=== PATIENT | female | born 1995 | race Caucasian/White ===

== ENCOUNTER → 2016-06-23 | Outpatient (CLI) | payer OTHER ==
[2016-06-23 12:29] LABS: BASO % 0.3 % (0.0-1.0); EOS # 0.2 K/mm3 (0.0-0.50); EOS % 1.7 % (0.0-3.0); LARGE UNSTAINED CELL # 0.2 K/mm3 (0.0-0.4); LARGE UNSTAINED CELL % 2.2 % (0.0-4.0); MONO # 0.5 K/mm3 (0.0-0.8); MONO % 4.8 % (0.0-5.0); NEUTROPHILS # 7.4 K/mm3 (1.8-7.7); NEUTROPHILS % 72.1 % (36.0-66.0); WHITE BLOOD COUNT 10.2 K/mm3 (4.0-10.0)
[2016-06-23 12:36] LABS: MEAN CORPUSCULAR HEMOGLOBIN 31.1 pg (27.0-33.0); MEAN CORPUSCULAR VOLUME 86.5 fl (80.0-96.0); PLATELET COUNT, AUTOMATED 209 k/mm3 (150-450); RED CELL DISTRIBUTION WIDTH 14.1 % (11.5-14.5)
[2016-06-24 11:27] LABS: HBsAg Prenatal NEGATIVE (NEGATIVE)
== END ==
LOC: M LAB 10:38
PROVIDERS: ATTEND Advanced Practice Midwife
DX: Z34.81 Encounter for supervision of other normal pregnancy, first trimester (principal)

== ENCOUNTER → 2016-07-12 | Outpatient (CLI) | payer OTHER ==
--- NOTE | 2016-07-12 13:18 | REP ---
Clinical: Anatomical evaluation. Comparison: None . Findings: Examination demonstrates a single live intrauterine in transverse (head to maternal right side) presentation. motion is identified by technologist. Placenta is noted posteriorly and grade zero without evidence for placenta previa or abruption. Amniotic fluid volume is normal. Cervix measures 5.6 cm in length and appears closed. No evidence for nuchal cord. Gestational age by LMP 24 weeks 4 days with ONESIMO 10/28/2016 . Gestational age by current measurements 25 weeks 1 day with ONESIMO 10/24/2016 . FHR equals 140 beats per minute. BPD 6.2 cm 25 weeks 1 day HC 23.4 cm 25 weeks 3 days AC 20.7 cm 25 weeks 2 days FL 4.5 cm 24 weeks 5 days HL 4.2 cm 25 weeks 3 days HC/AC ratio 1.13 Estimated weight 767 grams ( 57th percentile). Anatomical assessment demonstrates normal structures including cranium, choroid plexus, cavum, cerebellum/posterior fossa, nose and lips, lungs, diaphragm, stomach, cord insertion/three-vessel cord, kidneys/bladder, spine, and extremities. Limited evaluation of the facial profile and heart/ventricular outflow tracts noted. Impression: Single live intrauterine in transverse lie demonstrating appropriate interval growth. Anatomical limitations as described above. The remainder of the examination is normal and complete. Signed by Orlin Eric MD 07/12/2016 01:08 P
== END ==
LOC: M RAD 12:09
PROVIDERS: ATTEND Obstetrics & Gynecology
DX: Z36 Encounter for antenatal screening of mother (principal); Z3A.25 25 weeks gestation of pregnancy

== ENCOUNTER → 2016-07-23 | Outpatient (CLI) | payer OTHER ==
[2016-07-23 13:45] LABS: BASO # 0.1 K/mm3 (0.0-0.2); BASO % 0.6 % (0.0-1.0); EOS # 0.2 K/mm3 (0.0-0.50); EOS % 1.6 % (0.0-3.0); LARGE UNSTAINED CELL # 0.1 K/mm3 (0.0-0.4); LARGE UNSTAINED CELL % 1.2 % (0.0-4.0); LYMPH # 2.2 K/mm3 (1.5-6.5); LYMPH % 19.6 % (24.0-44.0); MEAN CORPUSCULAR HEMOGLOBIN 30.5 pg (27.0-33.0); MEAN CORPUSCULAR HGB CONC 34.4 g/dl (32.0-36.5); MEAN CORPUSCULAR VOLUME 88.7 fl (80.0-96.0); MONO # 0.4 K/mm3 (0.0-0.8); MONO % 3.6 % (0.0-5.0); NEUTROPHILS # 8.3 K/mm3 (1.8-7.7); NEUTROPHILS % 73.3 % (36.0-66.0); PLATELET COUNT, AUTOMATED 244 k/mm3 (150-450); RED CELL DISTRIBUTION WIDTH 14.3 % (11.5-14.5); WHITE BLOOD COUNT 11.3 K/mm3 (4.0-10.0)
== END ==
LOC: M SMT 08:38
PROVIDERS: ATTEND Obstetrics & Gynecology
DX: Z34.83 Encounter for supervision of other normal pregnancy, third trimester (principal)

== ENCOUNTER → 2016-08-15 | Outpatient (CLI) | payer OTHER ==
--- NOTE | 2016-08-16 08:24 | REP ---
Clinical: Anatomical evaluation. Comparison: 07/12/2016 . Findings: Examination demonstrates a single live intrauterine in cephalic presentation. motion is identified by technologist. Placenta is noted posteriorly and grade zero without evidence for placenta previa or abruption. Amniotic fluid volume is normal. No evidence for nuchal cord. Gestational age by LMP 29 weeks 3 day with ONESIMO 10/28/2016 . Gestational age by current measurements 30 weeks to date with ONESIMO 10/22/2016 . FHR equals 128 beats per minute. Estimated weight 1523 grams ( 59th percentile). Amniotic fluid index equals 13.8 cm (9.1 - 23.2). Anatomical assessment demonstrates normal structures including cranium, choroid plexus, cavum, cerebellum/posterior fossa, facial features, lungs, four-chamber heart/ventricular outflow tracts, diaphragm, stomach, cord insertion/three-vessel cord, kidneys/bladder, spine, and extremities. Impression: Single live intrauterine in cephalic presentation demonstrating appropriate interval growth. Anatomical assessment is complete and normal. Signed by Orlin Eric MD 08/16/2016 08:15 A
== END ==
LOC: M RAD 08:51
PROVIDERS: ATTEND Obstetrics & Gynecology
DX: Z36 Encounter for antenatal screening of mother (principal); Z3A.30 30 weeks gestation of pregnancy

== ENCOUNTER → 2016-10-04 | Outpatient (REF) | payer OTHER ==
[~2016-10-04] MED LIST: ACET50TA PO; IBUP-1114 PO; NUPE1OIN2 TOP; PRENTAB9 PO
== END ==
LOC: M LAB REF 17:12
PROVIDERS: ATTEND Obstetrics & Gynecology
DX: Z36 Encounter for antenatal screening of mother (principal); Z3A.30 30 weeks gestation of pregnancy

== ENCOUNTER → 2016-10-17 | Outpatient (CLI) | payer OTHER ==
[2016-10-17 18:54] LABS: ALBUMIN/GLOBULIN RATIO 0.83 (1.00-1.93); BILIRUBIN,DIRECT 0.1 MG/DL (0.0-0.2); BILIRUBIN,TOTAL 0.4 MG/DL (0.2-1.0); TOTAL PROTEIN 6.6 GM/DL (6.4-8.2)
== END ==
LOC: M SMT 13:20
PROVIDERS: ATTEND Advanced Practice Midwife
DX: L29.8 Other pruritus (principal)

== ENCOUNTER 2016-10-25 18:37 | Inpatient (IN) | payer OTHER ==
[~2016-10-25] VITALS: Ht 154.9 cm; Wt 75.0 kg
[2016-10-25] VITALS (7 sets, daily range): BP systolic 109–163; BP diastolic 60–77
[2016-10-25 19:58] LABS: MEAN CORPUSCULAR HEMOGLOBIN 30.2 pg (27.0-33.0); MEAN CORPUSCULAR HGB CONC 35.6 g/dl (32.0-36.5); MEAN CORPUSCULAR VOLUME 84.8 fl (80.0-96.0); WHITE BLOOD COUNT 12.6 K/mm3 (4.0-10.0)
[2016-10-25] MEDS ORDERED: OXYTOCIN 30 UNITS IN 0.9% NaCl 500ML IV BAG (J2590) As Ordered ONE ×2 (20:02→20:31)
[2016-10-25] MEDS ORDERED: LR 1,000 ML IV SCH (20:04)
[2016-10-25] MEDS ORDERED: LACTATED RINGER'S 1000 ML IV STA (20:04)
[2016-10-25] MEDS ORDERED: ONDANSETRON 4MG/2ML VIAL (J2405) IV PRN (21:00)
[2016-10-25] MEDS ORDERED: MEASLES,MUMPS,RUBELLA VACCINE INJ (MMR-II) (90707) SC SCH (21:00)
[2016-10-25] MEDS ORDERED: DIBUCAINE 1% OINTMENT 30GM TOP PRN (21:00)
[2016-10-25] MEDS ORDERED: RHOGAM 300 MCG (1500 IU) INJ (J2790) IM SCH (21:00)
[2016-10-25] MEDS ORDERED: OXYTOCIN DRIP 30 UNITS in APPROPRIATE DILUENT 1 EA IV SCH (21:00)
[2016-10-25] MEDS: LR 1,000 ML IV SCH (21:00)
[2016-10-25] MEDS ORDERED: ACETAMINOPHEN 500 MG TAB PO PRN (21:00)
[2016-10-25] MEDS ORDERED: DOCUSATE SODIUM 100 MG CAP PO PRN (21:00)
[2016-10-25] MEDS ORDERED: PROMETHAZINE 25 MG TAB PO PRN (21:00)
[2016-10-25] MEDS ORDERED: IBUPROFEN 800 MG TAB PO PRN (21:00)
[2016-10-25] MEDS ORDERED: LIDOCAINE 1% MDV INJ 50 ML VIAL As Ordered ONE (23:17)
[2016-10-26] MEDS: LR 1,000 ML IV SCH ×3 (05:00→21:00)
[2016-10-26 06:38] VITALS: BP 116/53
[2016-10-26] MEDS: PRENATAL VITAMINS CHEWABLE TABLET PO SCH (08:32)
[2016-10-26 18:03] VITALS: BP 113/69
[2016-10-27] MEDS: LR 1,000 ML IV SCH (05:00)
[2016-10-27 06:08] VITALS: BP 119/72
[2016-10-27] MEDS: PRENATAL VITAMINS CHEWABLE TABLET PO SCH (08:56)
[2016-10-27] MEDS ORDERED: NUPE1OIN2 TOP (09:57)
[2016-10-27] MEDS ORDERED: IBUP-1114 PO (09:57)
[2016-10-27] MEDS ORDERED: PRENTAB9 PO (09:57)
[2016-10-27] MEDS ORDERED: ACET50TA PO (09:57)
== END 2016-10-27 12:25 | disposition home or self-care (01) | DRG 560 ==
LOC: M LDO 18:37 → M LDI 19:18 → M OBS 22:39
PROVIDERS: ADMIT Obstetrics & Gynecology; ATTEND Obstetrics & Gynecology
PROC: 10E0XZZ Delivery of Products of Conception, External Approach (ICD-10-PCS; principal; 2016-10-25)
PROC: 0HQ9XZZ Repair Perineum Skin, External Approach (ICD-10-PCS; 2016-10-25)
DX: O26.86 Pruritic urticarial papules and plaques of pregnancy (PUPPP) (principal); O69.82X0 Labor and delivery complicated by other cord entanglement, without compression, not applicable or unspecified; Z37.0 Single live birth; Z3A.39 39 weeks gestation of pregnancy; Z79.899 Other long term (current) drug therapy; O70.0 First degree perineal laceration during delivery